=== PATIENT | male | born 1980 | race Caucasian/White ===

== ENCOUNTER → 2017-06-29 | Outpatient (CLI) | payer OTHER | LOC: M WUC 14:53 | DX: M50.322 Other cervical disc degeneration at C5-C6 level (principal); M79.644 Pain in right finger(s) | CPT/HCPCS: 72052 ==

== ENCOUNTER → 2019-06-06 | Outpatient (REF) | payer OTHER | LOC: M SMT 13:24 | PROVIDERS: ATTEND Urology | DX: Z30.09 Encounter for other general counseling and advice on contraception (principal) ==

== ENCOUNTER → 2019-08-05 | Outpatient (REF) | payer OTHER ==
[2019-08-05 14:20] LABS: SEMEN APPEARANCE OPAQUE (OPAQUE); SEMEN VISCOSITY LIQUID (LIQUID); SEMEN VOLUME 3.7 ml (2.0-5.0)
[2019-08-05 14:21] LABS: WBC CONCENTRATION <=1 M/ml (<=1 M/ml)
== END ==
LOC: M SMT 14:02
PROVIDERS: ATTEND Urology
DX: Z30.09 Encounter for other general counseling and advice on contraception (principal)

== ENCOUNTER → 2020-04-27 | Outpatient (CLI) | payer OTHER ==
[2020-04-27 11:52] LABS: BASO % 0.5 % (0.0-1.0); EOS # 0.1 10^3/uL (0.0-0.5); EOS % 2.1 % (0.0-3.0); HEMATOCRIT 49.2 % (42.0-52.0); HEMOGLOBIN 15.8 g/dl (13.5-17.5); LYMPH # 1.4 10^3/uL (1.5-5.0); LYMPH % 37.5 % (24.0-44.0); MEAN CORPUSCULAR HEMOGLOBIN 28.1 pg (27.0-33.0); MEAN CORPUSCULAR HGB CONC 32.1 g/dl (32.0-36.5); MEAN CORPUSCULAR VOLUME 87.5 fl (80.0-96.0); MONO # 0.3 10^3/uL (0.0-0.8); NEUTROPHILS # 1.9 10^3/uL (1.5-8.5); NEUTROPHILS % 50.1 % (36.0-66.0); PLATELET COUNT, AUTOMATED 214 10^3/uL (150-450); RED BLOOD COUNT 5.62 10^6/uL (4.30-6.10); WHITE BLOOD COUNT 3.8 10^3/uL (4.0-10.0)
[2020-04-27 12:27] LABS: ALBUMIN 4.3 GM/DL (3.2-5.2); ALT/SGPT 45 U/L (12-78); BILIRUBIN,TOTAL 0.5 MG/DL (0.2-1.0); BLOOD UREA NITROGEN 25 MG/DL (7-18); CALCIUM LEVEL 9.5 MG/DL (8.5-10.1); CARBON DIOXIDE LEVEL 29 MEQ/L (21-32); CHLORIDE LEVEL 105 MEQ/L (98-107); CHOLESTEROL LEVEL 220 MG/DL (<200); CHOLESTEROL RISK RATIO 4.313 (<5); CREATININE FOR GFR 1.22 MG/DL (0.70-1.30); GLOMERULAR FILTRATION RATE > 60.0 (>60); GLUCOSE, FASTING 95 MG/DL (70-100); HDL CHOLESTEROL 51 MG/DL (>40); LDL CHOLESTEROL 137 MG/DL (<100); NON-HDL-C 169 MG/DL; POTASSIUM SERUM 5.1 MEQ/L (3.5-5.1); RHEUMATOID FACTOR QUANT < 10.0 IU/ML (<15.0); SODIUM LEVEL 138 MEQ/L (136-145); TOTAL PROTEIN 7.7 GM/DL (6.4-8.2); TRIGLYCERIDES LEVEL 162 MG/DL (<150); URIC ACID 7.6 MG/DL (3.5-7.2)
[2020-04-27 12:39] LABS: ERYTHROCYTE SEDIMENTATION RATE 1 mm/hr (0-15)
[2020-04-30 16:07] LABS: ANTINUCLEAR ANTIBODIES DIRECT Negative (Negative); CYCLIC CITRULLINATED PEPTIDE 7 units (0-19); Lyme Disease IgG Ab 18 kDa Ban Absent (.); Lyme Disease IgG Ab 23 kDa Ban Present (.); Lyme Disease IgG Ab 28 kDa Ban Absent (.); Lyme Disease IgG Ab 30 kDa Ban Absent (.); Lyme Disease IgG Ab 39 kDa Ban Absent (.); Lyme Disease IgG Ab 41 kDa Ban Present (.); Lyme Disease IgG Ab 45 kDa Ban Present (.); Lyme Disease IgG Ab 58 kDa Ban Absent (.); Lyme Disease IgG Ab 66 kDa Ban Absent (.); Lyme Disease IgG Ab 93 kDa Ban Absent (.); Lyme Disease IgG West Blot Int Negative (.); Lyme Disease IgG/IgM Antibodie <0.91 ISR (0.00-0.90); Lyme Disease IgM Ab 23 kDa Ban Absent (.); Lyme Disease IgM Ab 39 kDa Ban Absent (.); Lyme Disease IgM Ab 41 kDa Ban Absent (.); Lyme Disease IgM Ab Quantitati 1.32 index (0.00-0.79); Lyme Disease IgM West Blot Int Negative (.)
== END ==
LOC: M WUC 08:55
PROVIDERS: ATTEND Physician Assistant
DX: M25.522 Pain in left elbow (principal); Z13.220 Encounter for screening for lipoid disorders

== ENCOUNTER 2020-12-21 18:22 | Inpatient (IN) | payer OTHER ==
[~2020-12-21] VITALS: Ht 167.6 cm; Wt 71.4 kg
[2020-12-21] MEDS ORDERED: COLC0.6T47 PO (18:37)
[2020-12-21] MEDS ORDERED: ALLO300T2 PO (18:37)
[2020-12-21 21:53] LABS: BASO % 0.2 % (0.0-1.0); HEMATOCRIT 53.3 % (42.0-52.0); HEMOGLOBIN 18.4 g/dl (13.5-17.5); LYMPH % 5.4 % (24.0-44.0); MEAN CORPUSCULAR HEMOGLOBIN 28.9 pg (27.0-33.0); MEAN CORPUSCULAR HGB CONC 34.5 g/dl (32.0-36.5); MEAN CORPUSCULAR VOLUME 83.8 fl (80.0-96.0); MONO # 0.8 10^3/uL (0.0-0.8); MONO % 4.4 % (2.0-8.0); NEUTROPHILS % 89.3 % (36.0-66.0); PLATELET COUNT, AUTOMATED 375 10^3/uL (150-450); RED BLOOD COUNT 6.36 10^6/uL (4.30-6.10)
[2020-12-21] MEDS ORDERED: NS 1,000 ML IV ONE ×3 (22:00→23:25)
[2020-12-21 22:11] LABS: CALCIUM LEVEL 10.2 MG/DL (8.5-10.1); CREATININE FOR GFR 3.79 MG/DL (0.70-1.30); GLOMERULAR FILTRATION RATE 19.1 (>60); POTASSIUM SERUM 6.3 MEQ/L (3.5-5.1)
[2020-12-21 22:40] LABS: ALBUMIN 5.7 GM/DL (3.2-5.2); BILIRUBIN,DIRECT 0.2 MG/DL (0.0-0.2); BILIRUBIN,TOTAL 1.2 MG/DL (0.2-1.0); MAGNESIUM LEVEL 2.9 MG/DL (1.8-2.4)
[2020-12-21] MEDS ORDERED: HYDR-4571 PO (23:15)
[2020-12-21] MEDS ORDERED: SOD POLYSTYRENE SULFONATE SUSP 15 GM/60 ML UD PO ONE (23:45)
[2020-12-21 23:47] LABS: OSMOLALITY SERUM 295 MOSM/KG (275-295)
[2020-12-21 23:53] LABS: OSMOLALITY URINE 314 MOSM/KG (50-1400)
[2020-12-21 23:58] LABS: C REACTIVE PROTEIN QUANTITATIV 4.58 MG/DL (0.00-0.30)
[2020-12-21 23:59] LABS: COMPLEMENT C3 171 MG/DL (90-180); COMPLEMENT C4 49 MG/DL (10-40); TOTAL PROTEIN 10.1 GM/DL (6.4-8.2); URIC ACID 7.8 MG/DL (3.5-7.2)
[2020-12-22] VITALS (7 sets, daily range): BP systolic 113–130; BP diastolic 53–79
[2020-12-22] LABS: RSV AMPLIFICATION NEGATIVE (NEGATIVE)
[2020-12-22 00:23] LABS: SODIUM,RANDOM URINE < 10 MEQ/L
[2020-12-22] MEDS ORDERED: CALCIUM GLUCONATE 1,000 MG in D5W MINI-BAG PLUS 100 ML IV ONE (01:00)
--- NOTE | 2020-12-22 01:07 | REPVR ---
PROCEDURE INFORMATION: Exam: XR Chest Exam date and time: 12/22/2020 12:28 AM Age: 40 years old Clinical indication: Other: Leukocytosis wbc 19 TECHNIQUE: Imaging protocol: XR of the chest. Views: 2 views. COMPARISON: CR SPINE CERVICAL COMPL 2017-06-29 15:04 FINDINGS: Lungs: Unremarkable. No consolidation. Pleural spaces: Unremarkable. No pleural effusion. No pneumothorax. Heart/Mediastinum: Unremarkable. No cardiomegaly. Bones/joints: Unremarkable. IMPRESSION: No acute findings. Electronically signed by: Joseph Anders On 12/22/2020 01:07:28 AM
--- NOTE | 2020-12-22 01:07 | REPVR ---
PROCEDURE INFORMATION: Exam: US Retroperitoneal Limited, Kidneys Exam date and time: 12/21/2020 11:51 PM Age: 40 years old Clinical indication: Abnormal findings; Abnormal lab test; Abnormal kidney function lab tests; Additional info: Jimbo TECHNIQUE: Imaging protocol: Real-time ultrasound of the retroperitoneum with image documentation. Examination was focused on the kidneys. COMPARISON: No relevant prior studies available. FINDINGS: Right kidney: No stones. No hydronephrosis. Left kidney: No stones. No hydronephrosis. Bladder: Unremarkable bladder. IMPRESSION: Unremarkable kidneys. Electronically signed by: Jospeh Anders On 12/22/2020 01:07:05 AM
--- NOTE | 2020-12-22 01:43 | HPEPDOC ---
[facility] Medical History & Physical Date of Admission Dec 21, 2020 Date of Service: Dec 21, 2020 History and Physical CHIEF COMPLAINT: Muscle weakness, muscle spasms, convulsions HISTORY OF PRESENT ILLNESS: 40-year-old male with past medical history significant for gout, right torn meniscus status post repair, and hernia repair at the age of 7, was in his usual state of health until yesterday, when patient developed muscle spasms, muscle stiffness, weakness, and convulsions after doing maile work for the past 2 3 days when it has been hot and mildly. Patient says that he tries to drink 10-12 bottles of water a day but felt that he could not hold onto it and noticed decrease in urine output and increasing weakness. He denied diarrhea , sore throat , decreased oral intake or any nonsteroidal anti-inflammatory use, but admitted to nausea, vomiting 3 times today and one yesterday. Patient's urine was very dark and at 7 to 7:30 AM this morning patient felt very weak with severe muscle spasms prompting him to come to the ER for further evaluation. Patient denies any history of obstructive uropathy kidney stones or prostate issues he has a strong family history of rheumatological diseases with the mothe r and maternal aunt having systemic lupus erythematosus. In the emergency room patient was found to be hyponatremic sodium of 127, hyperkalemic potassium of 6.3, azotemic with creatinine of 3.29, with baseline creatinine of 1.22, EKG with peaked T waves, elevated CK of 1630 and septic with white count of 19 lactic acid of 2.2 and tachycardic with rate of 108 bpm. PAST MEDICAL HISTORY: gout PAST SURGICAL HISTORY: Right knee repair due to torn meniscus hernia repair at the age of 7 SOCIAL HISTORY: Never smoked cigarettes social alcohol use 1-2 drinks twice a week denies recreational drug use Works in [employer] FAMILY HISTORY: Father : alive, no medical problems mother with coronary artery disease DVT Maternal aunt with DVT and systemic lupus erythematosus ALLERGIES: Please see below. REVIEW OF SYSTEMS: 10 point review of systems negative aside from positive findings on HPI HOME MEDICATIONS: Please see below. PHYSICAL EXAMINATION: VITAL SIGNS: See below GENERAL APPEARANCE: Awake alert oriented to person place and time no distress no pallor icterus or cyanosis HEENT: Pupils equally round reactive to light accommodation extra muscles intact normocephalic atraumatic no JVD thyromegaly cervical lymphadenopathy no carotid bruit no stridor No conversational dyspnea or use of respiratory accessory muscles trachea is midline CARDIOVASCULAR: S1-S2 sinus rhythm no murmurs rubs or gallops LUNGS: No kyphosis no scoliosis air entry is equal bilaterally no adventitious breath sounds no wheezing rales or rhonchi no use of respiratory accessory muscles ABDOMEN: Positive bowel sounds soft nontender nondistended normoactive bowel sounds x4 quadrants no rebound or guarding no hepatosplenomegaly EXTREMITIES: No clubbing cyanosis or pitting edema LABORATORY DATA: See below. IMAGING: See below MICROBIOLOGY: Please see below. 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 Patient will be admitted as an inpatient for 2 midnights for the following acute issues: Acute renal failure -Most likely secondary to acute rhabdomyolysis, due to elevated total CK of 1630 . Check urine myoglobin. -rule out nephrotic syndrome due to proteinuria and hypercalcemia -check SPEP UPEP cryoglobulins hepatitis profile ; rheumatological diseases rule out with SUSY ANCA -Rule out nephritic syndrome due to complaints of sore throat.-Check antistreptolysin O -UA had no casts, no RBCs. -IV fluids , strict I's and O's , Daily weights -Avoid nephrotoxins, renally dose all medications - rule out obstructive uropathy with renal ultrasound - check bladder scan every 6 hourly - if postvoid residual greater than 300ml, either intermittent catheterization or Ramirez catheter placement -Check basic metabolic panel every 6 hourly until patient's potassium is normal. -If no improvement consult nephrology -Check chest x-ray to rule out pulmonary edema. Acute rhabdomyolysis -IV fluids avoid nonsteroidal anti-inflammatory strict I's and O's -monitor for fluid overload with IV fluids -Check urine myoglobin Hyperkalemia -EKG with peaked T waves -IV bicarbonate x1 L -Kayexalate and calcium gluconate -Telemetry monitoring -Patient complains of muscle spasms weakness and stiffness -Repeat basic metabolic panel every 6 hours until potassium is normal Hyponatremia -Most likely due to renal failure with dehydration and decreased oral intake -Check metabolic panel every 6 hourly -Asymptomatic without signs of confusion headache seizure activity Sepsis -Empiric IV ceftriaxone due to leukocytosis lactic acidosis and elevated CRP and sedimentation rate. -UA is negative chest x-ray is pending. Respiratory panel negative -Due to proteinuria and possible nephrotic syndrome patient is at increased risk of gram-negative infection such as Streptococcus. -Check immunoglobulin and complement levels and antistreptolysin O screen due to complaints of sore throat -Discontinue if improved leukocytosis and negative infectious cause Lactic acidosis -Empiric IV ceftriaxone -IV fluids - recheck lactic acid in 4 hours Abnormal EKG with peaked T waves due to hyperkalemia -Sodium bicarb drip x1 L, Kayexalate, calcium gluconate -Telemetry -Repeat basic metabolic panel in 6 hours until normal potassium Hypercalcemia -Due to renal failure but need to rule out other etiology. -Check vitamin D PTH SPEP UPEP Hypermagnesemia History of gout Diet: Renal diet CODE STATUS: Full code DVT prophylaxis: Compression stockings Vital Signs Vital Signs Date Time Temp Pulse Resp B/P (MAP) Pulse Ox O2 Delivery O2 Flow Rate FiO2 12/21/20 21:10 12/21/20 18:23 97.4 108 20 98 Room Air Laboratory Data Labs 24H Laboratory Tests 2 12/21/20 21:15: 12/21/20 21:25: Immature Granulocyte % (Auto) 0.7, Neutrophils (%) (Auto) 89.3H, Lymphocytes (%) (Auto) 5.4L, Monocytes (%) (Auto) 4.4, Eosinophils (%) (Auto) 0.0, Basophils (%) (Auto) 0.2, Neutrophils # (Auto) 17.0H, Lymphocytes # (Auto) 1.0L, Monocytes # (Auto) 0.8, Eosinophils # (Auto) 0.0, Basophils # (Auto) 0.0, Nucleated Red Blood Cells % (auto) 0.0, Urine Color YELLOW, Urine Appearance HAZY, Urine pH 5.0, Urine Specific Combs 1.013, Urine Protein 1+H, Urine Glucose (UA) N EGATIVE, Urine Ketones NEGATIVE, Urine Blood NEGATIVE, Urine Nitrite NEGATIVE, Urine Bilirubin NEGATIVE, Urine Urobilinogen 2.0H, Urine Leukocyte Esterase NEGATIVE, Urine WBC (Auto) 2, Urine RBC (Auto) 2, Urine Hyaline Casts (Auto) 26, Urine Bacteria (Auto) NEGATIVE, Urine Squamous Epithelial Cells 0, Urine Calcium Oxalate Cryst (Auto) SMALL, Urine Mucus (Auto) SMALL, Urine Sperm (Auto) , Urine Myoglobin NEGATIVE, Urine Osmolality 314, Urine Random Creatinine 290.0, Urine Random Total Protein 34.0H, Urine Random Sodium < 10, Anion Gap 13, Glomerular Filtration Rate 19.1L, Lactic Acid Level 2.2*H, Calcium Level 10.2H, Magnesium Level 2.9H, Total Bilirubin 1.2H, Direct Bilirubin 0.2, Aspartate Amino Transf (AST/SGOT) 81H, Alanine Aminotransferase (ALT/SGPT) 74, Alkaline Phosphatase 136H, Total Creatine Kinase 1630H, C-Reactive Protein, Quantitative 4.58H, Total Protein 11.0H, Albumin 5.7H, Albumin/Globulin Ratio 1.1 12/21/20 21:48: Osmolality 295, Uric Acid 7.8H, Total Protein (PEP) 10.1H, Complement C3 171, Complement C4 49H 12/21/20 22:49: Ammonia 10, Coronavirus (COVID-19)(PCR) NEGATIVE, Influenza Type A (RT-PCR) NEGATIVE, Influenza Type B (RT-PCR) NEGATIVE, Respiratory Syncytial Virus (PCR) NEGATIVE CBC/BMP Laboratory Tests 12/21/20 21:25 Home Medications Scheduled Hydrocodone/Acetaminophen (Hydrocodone-Acetamin 5-325 mg) 1 Each Tablet, 1 TAB PO BID allopurinoL (allopurinoL) 300 Mg Tablet, 300 MG PO DAILY Scheduled PRN Colchicine (Colchicine) 0.6 Mg Tablet, 0.6 MG PO DAILY PRN for muscle cramps sometimes takes a second tablet later on if symptoms persist Allergies Coded Allergies: No Known Allergies (Unverified , 12/21/20) A-FIB/CHADSVASC A-FIB History Current/History of A-Fib/PAF?: No Current PO Anticoag Therapy: No Age/Risk Factor Scoring CHADSVASC: CHADSVASC Response (Comments) Value Age Risk Factor Age < 65 years old 0 Gender Risk Factor Male 0 Hx of CHF No 0 Hx of HTN No 0 Hx of Stroke/TIA/or VTE No 0 Hx of Diabetes No 0 Hx of Vascular Disease No 0 Total 0 Treatment Treatment ordered: NONE TAM PENNINGTON MD Dec 22, 2020 01:22
[2020-12-22 01:45] LABS: ERYTHROCYTE SEDIMENTATION RATE 12 mm/hr (0-15)
[2020-12-22] MEDS ORDERED: SODIUM BICARBONATE 75 MEQ in NS 0.45% 1,000 ML IV ONE (02:00)
[2020-12-22] MEDS ORDERED: cefTRIAXone SOD 1 GM in D5W MINI-BAG PLUS 50 ML IV SCH (03:00)
[2020-12-22 06:26] LABS: BASO % 0.2 % (0.0-1.0); EOS % 0.2 % (0.0-3.0); HEMATOCRIT 40.6 % (42.0-52.0); HEMOGLOBIN 14.1 g/dl (13.5-17.5); LYMPH % 11.6 % (24.0-44.0); MEAN CORPUSCULAR HEMOGLOBIN 29.5 pg (27.0-33.0); MEAN CORPUSCULAR HGB CONC 34.7 g/dl (32.0-36.5); MEAN CORPUSCULAR VOLUME 84.9 fl (80.0-96.0); MONO # 1.1 10^3/uL (0.0-0.8); MONO % 12.1 % (2.0-8.0); NEUTROPHILS # 6.6 10^3/uL (1.5-8.5); NEUTROPHILS % 75.6 % (36.0-66.0); PLATELET COUNT, AUTOMATED 227 10^3/uL (150-450); RED BLOOD COUNT 4.78 10^6/uL (4.30-6.10); WHITE BLOOD COUNT 8.8 10^3/uL (4.0-10.0)
[2020-12-22 07:21] LABS: CALCIUM LEVEL 8.6 MG/DL (8.5-10.1); CHOLESTEROL RISK RATIO 2.421 (<5); CREATININE FOR GFR 1.59 MG/DL (0.70-1.30); GLOMERULAR FILTRATION RATE 52.1 (>60); MAGNESIUM LEVEL 2.7 MG/DL (1.8-2.4); POTASSIUM SERUM 4.3 MEQ/L (3.5-5.1)
[2020-12-22] MEDS: NS 1,000 ML IV SCH ×2 (07:46→12:53)
[2020-12-22] MEDS: NORCO, ANEXSIA 5/325MG TABLET (HYDROcodone/ACETAMINOPHEN) PO SCH ×2 (08:09→20:01)
[2020-12-22] MEDS ORDERED: allopurinoL 300 MG TAB PO SCH (09:00)
--- NOTE | 2020-12-22 21:25 | ECGEPIP ---
[facility] - ED Test Date: 2020-12-21 Pat Name: CALIXTO SMITH Department: Room: [place] [address] Gender: Male [employer]: ED : 1980 Requested By: CHACHO CARL PA-C Order Number: [id number] Reading MD: Chelsea Arriola Measurements Intervals [place] Rate: 89 P: OK: 156 QRS: 162 QRSD: 82 T: 151 QT: 350 QTc: 425 Interpretive Statements Normal sinus rhythm Right axis deviation Nonspecific ST and T wave abnormality ?lead no prior Electronically Signed on 12-22-2020 21:25:12 EDT by Chelsea Arriola
[2020-12-23 06:00] VITALS: BP 120/59
[2020-12-23 06:39] LABS: BASO % 0.5 % (0.0-1.0); EOS # 0.1 10^3/uL (0.0-0.5); EOS % 1.5 % (0.0-3.0); HEMATOCRIT 39.5 % (42.0-52.0); HEMOGLOBIN 12.8 g/dl (13.5-17.5); LYMPH # 1.2 10^3/uL (1.5-5.0); LYMPH % 19.9 % (24.0-44.0); MEAN CORPUSCULAR HEMOGLOBIN 28.9 pg (27.0-33.0); MEAN CORPUSCULAR HGB CONC 32.4 g/dl (32.0-36.5); MEAN CORPUSCULAR VOLUME 89.2 fl (80.0-96.0); MONO # 0.6 10^3/uL (0.0-0.8); MONO % 10.4 % (2.0-8.0); NEUTROPHILS # 4.1 10^3/uL (1.5-8.5); NEUTROPHILS % 67.4 % (36.0-66.0); PLATELET COUNT, AUTOMATED 175 10^3/uL (150-450); RED BLOOD COUNT 4.43 10^6/uL (4.30-6.10)
[2020-12-23 07:04] LABS: BLOOD UREA NITROGEN 22 MG/DL (7-18); CALCIUM LEVEL 8.2 MG/DL (8.5-10.1); CARBON DIOXIDE LEVEL 26 MEQ/L (21-32); CHLORIDE LEVEL 113 MEQ/L (98-107); CREATININE FOR GFR 0.83 MG/DL (0.70-1.30); GLOMERULAR FILTRATION RATE > 60.0 (>60); GLUCOSE, FASTING 90 MG/DL (70-100); POTASSIUM SERUM 4.6 MEQ/L (3.5-5.1); SODIUM LEVEL 143 MEQ/L (136-145)
[2020-12-23] MEDS: NORCO, ANEXSIA 5/325MG TABLET (HYDROcodone/ACETAMINOPHEN) PO SCH (08:41)
[2020-12-24 10:37] LABS: TOTAL 25(OH) VITAMIN D 45.8 NG/ML (30.0-100.0)
[2020-12-24 10:38] LABS: PTH INTACT 69.7 PG/ML (18.5-88.0)
[2020-12-24 10:56] LABS: HEPATITIS B SURFACE ANTIGEN NEGATIVE (NEGATIVE)
[2020-12-24 11:24] LABS: HEPATITIS B CORE ANTIBODY IGM NEGATIVE (NEGATIVE); HEPATITIS C VIRUS ABY INDEX 0.1 INDEX (<0.8)
[2020-12-24 11:26] LABS: HEPATITIS A ANTIBODY IGM NEGATIVE (NEGATIVE)
[2020-12-24 12:07] LABS: ANTINUCLEAR ANTIBODIES DIRECT Negative (Negative)
[2020-12-24 18:07] LABS: ANTI DS-DNA AB Negative (Negative); ANTI-GLOMERULAR BASEMENT MEMB 2 units (0-20)
--- NOTE | 2020-12-25 13:02 | DSES ---
DISCHARGE SUMMARY DATE OF ADMISSION: 12/21/2020 DATE OF DISCHARGE: 12/23/2020 DISCHARGE DIAGNOSES: 1. Acute kidney injury. 2. Acute dehydration. 3. Hyperkalemia. PROCEDURES PERFORMED DURING HOSPITALIZATION: None. CONSULTANTS ON THE CASE: None. DISPOSITION: Patient discharged home. CONDITION ON DISCHARGE: Stable with normal functioning kidneys. DISCHARGE INSTRUCTIONS: Patient instructed to remain hydrated. He is to follow with his primary care physician (PCP) in 1 week. Patient is to followup results of c-ANCA, antiproteinase, p-ANCA, atypical p-ANCA, myeloperoxidase, and anti-double stranded DNA as well as glomerular basement membrane antibody results, which were still pending at the time of discharge. RELEVANT LABORATORY DATA: On admission, patient's creatinine was 3.79 with a BUN of 46, potassium of 6.3, calcium 10.2. At the time of discharge the patient's creatinine is 0.83 and potassium is now 4.6. CPK level were 1373. Magnesium was 2.7. Calcium 8.6. Chemistries showed that the patient had a urine sodium less than 10. Urine myoglobin was negative. Urinalysis was bland and unremarkable. IMAGING STUDIES: Renal ultrasound showed no acute renal pathology. Chest x-ray is unremarkable. DISCHARGE MEDICATIONS: - allopurinol 300 mg daily - colchicine 0.6 mg daily as needed for muscle cramps - [place] 5/325 one tablet twice a day as needed HOSPITAL COURSE: Mr. Parrish is a 40-year-old gentleman who had been working outside for a prolonged period of time. Despite attempting to stay hydrated he started experiencing symptoms of dehydration and heat stroke. Presented to the hospital. Was found to have a significant elevated creatinine and potassium. He was hydrated with intravenous (IV) fluids. Treated with potassium phosphate. EKG did not show any peak T waves. Patient was admitted to the telemetry floor to the progressive care unit (PCU). He was continued on IV fluids. Renal ultrasound was obtained, which was unremarkable. It was felt that based on the patient's urine chemistry with the sodium of less than 10 that this was likely related to acute dehydration. With IV fluids, patient's creatinine improved to normal range, and he was subsequently discharged home in stable condition. At the time of discharge, on 12/23/2020, patient's temperature is 97.1, pulse 72, respirations 16, blood pressure 121/59, oxygen saturation 97% on room air. General: The patient is alert and oriented times three. Appears in no acute distress. Skin is intact and warm to touch. Head is atraumatic. Pupils symmetric and reactive to light. No sclerae icterus. Oropharynx is clear. Oral mucosa moist. Neck supple. Lung sounds present without rales or rhonchi. Heart is S1, S2 without murmurs, rubs, or gallops. Abdomen is soft, nontender, nondistended. No palpable costovertebral angle (CVA) tenderness. Extremities without any cyanosis, clubbing or edema. Neurologic exam: Cranial nerves II-XII grossly intact without any focal neurologic deficits. A total of 30 minutes spent completing all discharge paperwork.
== END 2020-12-23 08:58 | disposition home or self-care (01) | DRG 683 ==
LOC: M ED 18:22 → M ED INP 18:23 → M PCU 12-22 01:43 → M MSPAV 12-22 16:45
PROVIDERS: ADMIT General Practice; ATTEND Internal Medicine
DX: N17.9 Acute kidney failure, unspecified (principal); E87.1 Hypo-osmolality and hyponatremia; E87.2 Acidosis; E86.0 Dehydration; E87.5 Hyperkalemia; M10.9 Gout, unspecified; E83.52 Hypercalcemia; E83.42 Hypomagnesemia

== ENCOUNTER → 2021-01-23 | Outpatient (CLI) | payer OTHER ==
[~2021-01-23] MED LIST: ALLO300T2 PO; COLC0.6T47 PO; HYDR-4571 PO
[2021-01-23 15:40] LABS: APPEARANCE, URINE CLEAR (CLEAR); BACTERIA, URINE AUTO NEGATIVE (NEGATIVE); BILIRUBIN, URINE AUTO NEGATIVE (NEGATIVE); BLOOD, URINE BLOOD NEGATIVE (NEGATIVE); COLOR, URINE YELLOW (YELLOW); GLUCOSE, URINE (UA) AUTO NEGATIVE (NEGATIVE); KETONE, URINE AUTO NEGATIVE (NEGATIVE); LEUKOCYTE ESTERASE, URINE AUTO NEGATIVE (NEGATIVE); NITRITE, URINE AUTO NEGATIVE (NEGATIVE); PROTEIN, URINE AUTO NEGATIVE (NEGATIVE); RBC, URINE AUTO 0 /HPF (0-3); SPECIFIC GRAVITY URINE AUTO 1.006 (1.002-1.035); SQUAMOUS EPITHELIAL CELL UR AU 0 /HPF (0-6); UROBILINOGEN, URINE AUTO 0.2 mg/dL (0.0-2.0); WBC, URINE AUTO 0 /HPF (0-3)
[2021-01-23 15:41] LABS: BASO % 0.6 % (0.0-1.0); EOS # 0.1 10^3/uL (0.0-0.5); EOS % 2.2 % (0.0-3.0); HEMATOCRIT 44.9 % (42.0-52.0); HEMOGLOBIN 15.2 g/dl (13.5-17.5); LYMPH # 1.6 10^3/uL (1.5-5.0); LYMPH % 30.5 % (24.0-44.0); MEAN CORPUSCULAR HEMOGLOBIN 29.3 pg (27.0-33.0); MEAN CORPUSCULAR HGB CONC 33.9 g/dl (32.0-36.5); MEAN CORPUSCULAR VOLUME 86.5 fl (80.0-96.0); MONO # 0.5 10^3/uL (0.0-0.8); MONO % 8.9 % (2.0-8.0); NEUTROPHILS # 2.9 10^3/uL (1.5-8.5); NEUTROPHILS % 57.6 % (36.0-66.0); PLATELET COUNT, AUTOMATED 219 10^3/uL (150-450); RED BLOOD COUNT 5.19 10^6/uL (4.30-6.10); WHITE BLOOD COUNT 5.1 10^3/uL (4.0-10.0)
[2021-01-23 16:13] LABS: ALBUMIN 4.5 GM/DL (3.2-5.2); ALT/SGPT 67 U/L (12-78); BLOOD UREA NITROGEN 19 MG/DL (7-18); CALCIUM LEVEL 9.6 MG/DL (8.5-10.1); CARBON DIOXIDE LEVEL 30 MEQ/L (21-32); CHLORIDE LEVEL 105 MEQ/L (98-107); CPK CREATINE PHOSPHOKINASE 570 U/L (39-308); CREATININE FOR GFR 1.15 MG/DL (0.70-1.30); GLOMERULAR FILTRATION RATE > 60.0 (>60); GLUCOSE, FASTING 78 MG/DL (70-100); MAGNESIUM LEVEL 2.1 MG/DL (1.8-2.4); POTASSIUM SERUM 4.3 MEQ/L (3.5-5.1); SODIUM LEVEL 139 MEQ/L (136-145); TOTAL PROTEIN 7.7 GM/DL (6.4-8.2); URIC ACID 8.2 MG/DL (3.5-7.2)
== END ==
LOC: M LAB 14:01
PROVIDERS: ATTEND Physician Assistant
DX: M10.072 Idiopathic gout, left ankle and foot (principal); E78.2 Mixed hyperlipidemia; N17.8 Other acute kidney failure

== ENCOUNTER → 2025-04-22 | Outpatient (CLI) | payer OTHER ==
[~2025-04-22] MED LIST changes: -COLC0.6T47 PO; +COLC0.6T53 PO
[2025-04-22 12:31] LABS: BASO # 0.0 10^3/uL (0.0-0.2); BASO % 0.4 % (0.0-1.0); EOS # 0.1 10^3/uL (0.0-0.5); EOS % 1.7 % (0.0-3.0); LYMPH # 1.8 10^3/uL (1.5-5.0); LYMPH % 24.0 % (24.0-44.0); MONO # 0.6 10^3/uL (0.0-0.8); MONO % 8.3 % (2.0-8.0); NEUTROPHILS # 4.9 10^3/uL (1.5-8.5); NEUTROPHILS % 65.1 % (36.0-66.0); PLATELET COUNT, AUTOMATED 309 10^3/uL (150-450)
[2025-04-22 13:11] LABS: ALT/SGPT 48.0 U/L (7.0-40); AST/SGOT 60.0 U/L (<34); CALCIUM LEVEL 9.4 MG/DL (8.5-10.1); CARBON DIOXIDE LEVEL 30.0 MMOL/L (20-31); CHLORIDE LEVEL 103.0 MMOL/L (98-107); CHOLESTEROL LEVEL 165.0 MG/DL (<200); CHOLESTEROL RISK RATIO 4.29 (<5); CREATININE FOR GFR 1.38 MG/DL (0.70-1.30); GLOMERULAR FILTRATION RATE 65.1 (>60); LDL CHOLESTEROL 103.6 MG/DL (<100); NON-HDL-C 126.6 MG/DL; POTASSIUM SERUM 5.0 MMOL/L (3.5-5.1); SODIUM LEVEL 141.0 MMOL/L (136-145); TRIGLYCERIDES LEVEL 115.0 MG/DL (<150)
[2025-04-22 13:13] LABS: FREE T4 1.3 NG/DL (0.89-1.76)
== END ==
LOC: M LAB 11:34
PROVIDERS: ATTEND Family Medicine
DX: E78.00 Pure hypercholesterolemia, unspecified (principal); Z13.29 Encounter for screening for other suspected endocrine disorder; Z13.0 Encounter for screening for diseases of the blood and blood-forming organs and certain disorders involving the immune mechanism; M10.9 Gout, unspecified